=== PATIENT | male | born 1970 | race Caucasian/White ===

== ENCOUNTER 2022-09-26 10:50 | Observation (INO) | payer OTHER ==
[2022-09-26] MEDS ORDERED: LORazepam 1 MG TABLET PO ONE (11:47)
[2022-09-26] MEDS ORDERED: LORazepam 1 MG TABLET ONE (12:18)
[2022-09-26 12:40] LABS: BASO % 0.4 % (0-2.0); HEMATOCRIT 42.6 % (35.4-49); HEMOGLOBIN 14.3 GM/dL (11.7-16.9); LYMPH % 17.7 % (8-40); MCH 30.8 pg (25.7-33.7); MCHC 33.5 g/dl (32.0-35.9); MEAN CELL VOLUME 91.9 fl (80-96); MEAN PLT VOLUME 7.4 fl (7.5-11.1); MONO % 4.4 % (3.8-10.2); NEUT % 77.5 % (42.8-82.8); PLATELET COUNT 244 10^3/uL (134-434); RBC 4.63 M/mm3 (4.00-5.60); RDW 14.6 % (11.9-15.9); WHITE BLOOD COUNT 8.2 K/mm3 (4.0-10.0)
[2022-09-26 12:49] LABS: INR 0.91 (0.83-1.09); PROTHROMBIN TIME (PATIENT) 10.5 SEC (9.7-13.0)
[2022-09-26 13:01] LABS: CALCIUM 9.8 mg/dL (8.5-10.1)
[2022-09-26 13:02] LABS: ALBUMIN 4.6 g/dl (3.4-5.0); BLOOD UREA NITROGEN 13.9 mg/dL (7-18); MAGNESIUM 1.7 mg/dL (1.8-2.4)
[2022-09-26 13:05] LABS: CREATININE 0.9 mg/dL (0.55-1.3)
[2022-09-26 13:06] LABS: BILIRUBIN,TOTAL 0.6 mg/dL (0.2-1)
[2022-09-26] MEDS ORDERED: MAGNESIUM SULF 50% (8.12 MEQ/2 ML-1 GM VIAL) IVPB ONE (13:07)
[2022-09-26] MEDS ORDERED: LACTATED RINGERS SOLUTION 1000 ML INFUS.BAG IV ONE (13:08)
[2022-09-26] MEDS ORDERED: MAGNESIUM CL 64 MG TABLET.SA PO ONE (16:30)
[2022-09-27 07:47] LABS: BASO % 0.5 % (0-2.0); HEMATOCRIT 40.4 % (35.4-49); HEMOGLOBIN 13.7 GM/dL (11.7-16.9); LYMPH % 25.9 % (8-40); MCH 31.4 pg (25.7-33.7); MCHC 34.1 g/dl (32.0-35.9); MEAN CELL VOLUME 92.1 fl (80-96); MEAN PLT VOLUME 7.7 fl (7.5-11.1); MONO % 8.7 % (3.8-10.2); NEUT % 63.9 % (42.8-82.8); PLATELET COUNT 220 10^3/uL (134-434); RBC 4.39 M/mm3 (4.00-5.60); RDW 14.1 % (11.9-15.9); WHITE BLOOD COUNT 5.9 K/mm3 (4.0-10.0)
[2022-09-27 08:06] LABS: BLOOD UREA NITROGEN 14.1 mg/dL (7-18); CREATININE 0.8 mg/dL (0.55-1.3); PHOSPHOROUS 3.4 mg/dL (2.5-4.9)
[2022-09-27 08:07] LABS: BILIRUBIN,TOTAL 0.8 mg/dL (0.2-1); TOT PROT 6.7 g/dl (6.4-8.2)
[2022-09-27 08:09] LABS: CALCIUM 8.9 mg/dL (8.5-10.1)
[2022-09-27 08:10] LABS: MAGNESIUM 1.9 mg/dL (1.8-2.4)
[2022-09-27 08:25] LABS: ALBUMIN 3.7 g/dl (3.4-5.0)
[2022-09-27] MEDS ORDERED: PANTOPRAZOLE 40 MG TABLET PO ONE (09:55)
[2022-09-27] MEDS ORDERED: ASPIRIN 81 MG CHEWABLE TABLETS ONE (09:55)
[2022-09-27] MEDS ORDERED: LISINOPRIL 5 MG TABLET ONE (09:55)
[2022-09-27] MEDS ORDERED: ROSUVASTATIN CA 20 MG TABLET ONE (09:56)
[2022-09-27] MEDS ORDERED: ENOXAPARIN NA (PORCINE) 40 MG/0.4 ML DISP.SYRIN SQ ONE (09:56)
[2022-09-27 10:18] VITALS: BMI 25.8
[2022-09-27] MEDS: ENOXAPARIN NA (PORCINE) 40 MG/0.4 ML DISP.SYRIN SQ SCH (10:24)
[2022-09-27] MEDS: ASPIRIN 81 MG CHEWABLE TABLETS PO SCH (10:24)
[2022-09-27] MEDS: ROSUVASTATIN CA 20 MG TABLET PO SCH (10:24)
[2022-09-27] MEDS: PANTOPRAZOLE 40 MG TABLET PO SCH (10:24)
[2022-09-27] MEDS: LISINOPRIL 5 MG TABLET PO SCH (10:25)
[2022-09-27] MEDS: EZETIMIBE 10 MG TABLET (FP) PO SCH (10:25)
[2022-09-27 19:52] LABS: N-TERMINAL BNP 183.8 pg/ml (5-125)
[2022-09-28] MEDS: ASPIRIN 81 MG CHEWABLE TABLETS PO SCH (13:38)
[2022-09-28] MEDS: ROSUVASTATIN CA 20 MG TABLET PO SCH (13:38)
[2022-09-28] MEDS: EZETIMIBE 10 MG TABLET (FP) PO SCH (13:38)
[2022-09-28] MEDS: PANTOPRAZOLE 40 MG TABLET PO SCH (13:39)
[2022-09-28] MEDS: LISINOPRIL 5 MG TABLET PO SCH (13:39)
[2022-09-28] MEDS: ENOXAPARIN NA (PORCINE) 40 MG/0.4 ML DISP.SYRIN SQ SCH ×2 (13:39→13:44)
[2022-09-29] MEDS: PANTOPRAZOLE 40 MG TABLET PO SCH (11:32)
[2022-09-29] MEDS: EZETIMIBE 10 MG TABLET (FP) PO SCH (11:32)
[2022-09-29] MEDS: ROSUVASTATIN CA 20 MG TABLET PO SCH (11:32)
[2022-09-29] MEDS: ENOXAPARIN NA (PORCINE) 40 MG/0.4 ML DISP.SYRIN SQ SCH (11:33)
[2022-09-29] MEDS: ASPIRIN 81 MG CHEWABLE TABLETS PO SCH (11:33)
[2022-09-29] MEDS: LISINOPRIL 5 MG TABLET PO SCH (11:33)
[2022-09-29 12:36] LABS: BASO % 0.5 % (0-2.0); EOS % 0.2 % (0-4.5); HEMATOCRIT 43.9 % (35.4-49); HEMOGLOBIN 14.9 GM/dL (11.7-16.9); LYMPH % 4.3 % (8-40); MCH 30.9 pg (25.7-33.7); MCHC 33.9 g/dl (32.0-35.9); MEAN CELL VOLUME 91.1 fl (80-96); MEAN PLT VOLUME 7.3 fl (7.5-11.1); MONO % 4.1 % (3.8-10.2); NEUT % 90.9 % (42.8-82.8); PLATELET COUNT 216 10^3/uL (134-434); RBC 4.82 M/mm3 (4.00-5.60); RDW 14.4 % (11.9-15.9); WHITE BLOOD COUNT 9.1 K/mm3 (4.0-10.0)
[2022-09-29 12:57] LABS: CALCIUM 9.1 mg/dL (8.5-10.1)
[2022-09-29 12:58] LABS: ALBUMIN 4.1 g/dl (3.4-5.0); BLOOD UREA NITROGEN 14.1 mg/dL (7-18)
[2022-09-29 13:01] LABS: CREATININE 0.9 mg/dL (0.55-1.3)
[2022-09-29 13:02] LABS: BILIRUBIN,TOTAL 0.6 mg/dL (0.2-1)
[2022-09-29 13:03] LABS: TOT PROT 7.4 g/dl (6.4-8.2)
[2022-09-29] MEDS ORDERED: PANTOPRAZOLE 40 MG TABLET PO ONE (17:02)
[2022-09-29] MEDS ORDERED: SODIUM CHLORIDE 1,000 ML IV SCH (17:30)
[2022-09-30 04:30] VITALS: RESP 18
[2022-09-30 08:23] LABS: BASO % 0.2 % (0-2.0); EOS % 0.1 % (0-4.5); HEMATOCRIT 42.3 % (35.4-49); HEMOGLOBIN 14.1 GM/dL (11.7-16.9); MCH 30.5 pg (25.7-33.7); MCHC 33.4 g/dl (32.0-35.9); MEAN CELL VOLUME 91.3 fl (80-96); MEAN PLT VOLUME 7.8 fl (7.5-11.1); MONO % 8.7 % (3.8-10.2); PLATELET COUNT 203 10^3/uL (134-434); RBC 4.63 M/mm3 (4.00-5.60); RDW 13.9 % (11.9-15.9); WHITE BLOOD COUNT 7.5 K/mm3 (4.0-10.0)
[2022-09-30 08:58] LABS: ALBUMIN 3.7 g/dl (3.4-5.0); BLOOD UREA NITROGEN 10.4 mg/dL (7-18); CALCIUM 8.4 mg/dL (8.5-10.1); MAGNESIUM 1.8 mg/dL (1.8-2.4)
[2022-09-30 09:03] LABS: BILIRUBIN,TOTAL 0.6 mg/dL (0.2-1); TOT PROT 6.7 g/dl (6.4-8.2)
[2022-09-30] MEDS: ROSUVASTATIN CA 20 MG TABLET PO SCH (10:19)
[2022-09-30] MEDS: EZETIMIBE 10 MG TABLET (FP) PO SCH (10:19)
[2022-09-30] MEDS: LISINOPRIL 5 MG TABLET PO SCH (10:19)
[2022-09-30] MEDS: PANTOPRAZOLE 40 MG TABLET PO SCH (10:20)
[2022-09-30] MEDS: ASPIRIN 81 MG CHEWABLE TABLETS PO SCH (10:20)
[2022-09-30] MEDS: ENOXAPARIN NA (PORCINE) 40 MG/0.4 ML DISP.SYRIN SQ SCH (11:15)
[2022-09-30 12:36] VITALS: BP 108/56; PULSE 78; TEMP 98.2
== END 2022-09-30 13:39 | disposition short-term general hospital (02) ==
LOC: JER 10:50 → JERBED 15:45 → J4W 09-27 11:49
PROVIDERS: ADMIT Internal Medicine; ATTEND Internal Medicine
PROC: 3E023GC Introduction of Other Therapeutic Substance into Muscle, Percutaneous Approach (ICD-10-PCS; principal; 2022-09-26)
PROC: 3E0337Z Introduction of Electrolytic and Water Balance Substance into Peripheral Vein, Percutaneous Approach (ICD-10-PCS; 2022-09-26)
DX: I25.10 Atherosclerotic heart disease of native coronary artery without angina pectoris (principal); I11.9 Hypertensive heart disease without heart failure; R77.8 Other specified abnormalities of plasma proteins; R07.9 Chest pain, unspecified; E78.5 Hyperlipidemia, unspecified; R41.0 Disorientation, unspecified; R53.1 Weakness; R55 Syncope and collapse; Z95.5 Presence of coronary angioplasty implant and graft
CPT/HCPCS: 0241U-QW; 36415; 71045-TC-FY; 78452-TC; 80053; 80061; 83036; 83735; 83880; 84100; 84443; 84484; 85025; 85379; 85610; 85730; 86850; 86900; 86901; 87045; 87046; 87324; 87449; 93005; 93010; 93017; 93306-TC; 99285-25; A9502; C9803-CS; G0378; U0003; U0005